=== PATIENT | female | born 2000 | race Caucasian/White ===

== ENCOUNTER 2024-01-09 20:14 | Emergency (ER) | payer OTHER ==
[~2024-01-09] VITALS: Ht 160 cm; Wt 81.9 kg
[2024-01-09] MEDS ORDERED: CEFTRIAXONE/SODIUM CHLORIDE 2 GM/100 ML PIGGYBACK IV ONE (20:45)
[2024-01-09] MEDS ORDERED: SODIUM CHLORIDE 0.9% 1,000 ML IV ONE (20:45)
[2024-01-09] MEDS ORDERED: ACETAMINOPHEN 500 MG TAB PO ONE (20:45)
[2024-01-09] MEDS ORDERED: CYMBALTA30 MG PO (20:51)
[2024-01-09] MEDS ORDERED: ALLEGRA ALLERGY60 MG PO (20:52)
[2024-01-09 20:53] LABS: BASOPHILS 0.4 % (0-2); EOSINOPHILS 0.7 % (0-6); HEMATOCRIT 39.2 % (35.0-50.0); HEMOGLOBIN 13.5 g/dL (12.0-18.0); LYMPHOCYTES 18.8 % (24-44); MCH 33.7 (27-36); MCHC 34.5 g/dl (30-36); MCV 97.6 fl (81-99); MONOCYTES 8.8 % (0-12); NEUTROPHILS 71.3 % (39-80); PLATELET COUNT 288 K/uL (140-440); RBC 4.01 M/ul (4.3-5.7); RDW 12.8 (10.5-15.0)
[2024-01-09 21:01] LABS: PARTIAL THROMBOPLASTIN TIME 31.6 Sec (22.9-41.3)
[2024-01-09 21:01] LABS: BILIRUBIN, URINE NEGATIVE (negative); BLOOD/HGB, URINE SMALL (Negative); KETONE, URINE NEGATIVE (Negative); LEUK ESTERASE, URINE MODERATE (negative); NITRITE, URINE NEGATIVE (negative); PH, URINE 6.5 (5-7)
[2024-01-09 21:02] LABS: INR 1.05 (0.80-1.30)
[2024-01-09 21:07] LABS: ALBUMIN 3.2 g/dL (3.4-5.0); ALBUMIN/GLOBULIN RATIO 0.71 (1.1-2.4); ANION GAP 15.9 (7-21); BILIRUBIN, TOTAL 0.3 ng/dL (0.2-1.0); BUN/CREATININE RATIO 9.17 (6.0-28.6); CALCIUM 9.3 mg/dL (8.5-10.1); CREATININE, SERUM 1.09 mg/dL (0.55-1.02); POTASSIUM 2.9 mmol/L (3.5-5.1); PROTEIN, TOTAL 7.7 g/dL (6.4-8.2)
[2024-01-09 21:10] LABS: CASTS, URINE NONE SEEN \\lpf; CRYSTALS, URINE NONE SEEN (0-1+); EPITHELIAL CELLS, URINE SQUAMOUS 3+ /lpf (0-1+)
[2024-01-09 21:10] LABS: LACTIC ACID, BLOOD 0.9 mmol/L (0.4-2.0)
[2024-01-09 21:11] LABS: BACTERIA, URINE 2+ /hpf (negative); COLLECTION TYPE, URINE CLEAN CATCH; REFLEX CULTURE, URINE No (No)
[2024-01-09 21:28] LABS: INFLUENZA B NAA NEGATIVE (NEGATIVE); RESPIRATORY SYNCYTIAL VIR NAA NEGATIVE (NEGATIVE)
[2024-01-09] MEDS ORDERED: POTASSIUM CHLORIDE 10 MEQ TABCR PO ONE ×2 (21:30→22:45)
[2024-01-09] MEDS ORDERED: LACTATED RINGER'S 1,000 ML IV ONE (22:00)
[2024-01-09] MEDS ORDERED: CEPHALEXIN MONOHYDRATE 500 MG CAP PO ONE (22:00)
[2024-01-09] MEDS ORDERED: CEPHALEXIN500 MG PO (22:43)
[2024-01-09 23:00] VITALS: BP 118/85
== END 2024-01-09 23:00 | disposition home or self-care (01) ==
LOC: ED 20:14
PROVIDERS: Internal Medicine
DX: N39.0 Urinary tract infection, site not specified (principal); Z79.899 Other long term (current) drug therapy; Z11.52 Encounter for screening for COVID-19
CPT/HCPCS: 36415; 71045; 80053; 81001; 83605; 83735; 84703; 85025; 85610; 85730; 87040; 87077; 87088; 87186; 87502; 96361; 96365; 99283-25; A9270; J0696; J7030; J7121; U0002